=== PATIENT | female | born 1980 | race Caucasian/White ===

== ENCOUNTER 2018-08-16 20:20 | Emergency (ER) | payer MEDICAID ==
--- NOTE | 2018-08-16 21:37 | OBHP ---
Datetime: 08/16/2018 21:11 IP Adm Impression: , intrauterine IP Admit Plan: Observation/Evaluation; Discharge home Admit Comment, IP Provider: Patient is a @ 29 wks, reports lower abdominal cramping. Pinkish discharge noted, no leaking, pelvic pressure occasionally. Previous x 2, 5 terminations. NO oth er antepartum issues, no medical problems, VE=closed/thick/high, FHR = 150 mod ada, +accels, no decel s. Patient ruled out for labor, no other pertinent sign/symptoms, ruled out for labor. Labor precauti ons given Pelvic Type - PN: Adequate Extremities - PN: Normal Abdomen - PN: Normal Back - PN: Normal Breast - PN: Normal Lungs - PN: Normal Heart - PN: Normal Thyroid - PN: Normal Neurologic - PN: Normal HEENT - PN: Normal General - PN: Normal FHR - Baseline A Provider: 150 Contraction Comments Provider: one EGA AdmitDate IP: 29.1 Vital Signs Provider: Reviewed; Within Normal Limits IP Chief Complaint: Uterine contractions NICHD Variability Prov Fetus A: Moderate 6-25bpm NICHD Accel Fetus A IP Provider: [id number] NICHD Decel Fetus A IP Provider: None Dilatation, Provider: closed Genitourinary Exam: Normal DTRs - PN: Normal
--- NOTE | 2018-08-16 21:40 | OBDCSUM ---
Datetime: 08/16/2018 21:13 Discharged to, Provider: Home Follow up at, Provider: Willy Disch Instr Activity: Normal activity Disch Instr Diet: Regular Discharge Diet restrict Prov: Home Discharge Time: 08/16/2018 21:13 Disch Referrals: None Discharge Diagnosis Prov Other: false labor
[2018-08-17 01:28] VITALS: BP 105/69; PULSE 82; O2SAT 97
== END 2018-08-16 21:12 | disposition home or self-care (01) ==
LOC: H.EROB2 20:20
DX: O26.93 Pregnancy related conditions, unspecified, third trimester (principal); R10.2 Pelvic and perineal pain; Z3A.29 29 weeks gestation of pregnancy